=== PATIENT | male | born 1930 | race Caucasian/White ===

== ENCOUNTER → 2019-10-06 | Outpatient (CLI) | payer MEDICARE, OTHER ==
[~2019-10-06] MED LIST: CATHETER FLUSH 10 ML SYR IV PRN
--- NOTE | 2019-10-06 11:47 | Diagnostic Imaging Report ---
EXAMINATION: CT Abdomen Pelvis without contrast. TECHNIQUE: Multiple contiguous axial images were obtained through the abdomen and pelvis without the use of intravenous contrast. All CT scans use one or more of the following dose optimizing techniques: automated exposure control, MA and/or KvP adjustment based on a patient size and exam type, or iterative reconstruction. HISTORY: Prostate cancer. COMPARISON: None available. FINDINGS: Limited views of the lower thorax show moderate right pleural effusion and mild bibasilar atelectasis. Aortic valve is calcified concerning for aortic stenosis. Calcified granulomas are seen in the liver. There are no suspicious liver lesions. There is no biliary ductal dilation. Gallbladder is surgically absent. Pancreas is normal. Spleen is normal. Adrenal glands are normal. Simple cysts are seen in the kidneys. No suspicious renal lesions. There is no hydronephrosis. Urinary bladder is normal. Brachytherapy seeds are present in the prostate. Visualized bowel is normal in caliber without obstruction or inflammation. No free fluid or air. No abdominal or pelvic lymphadenopathy. Aorta is normal in caliber without aneurysm. There are no suspicious osseus lesions. IMPRESSION: 1. No metastatic disease is seen in the abdomen or pelvis. 2. Moderate right pleural effusion and bibasilar atelectasis. 3. Aortic valvular calcifications are seen concerning for aortic stenosis. Dictated by: Dictated on workstation # [id number]
--- NOTE | 2019-10-06 14:46 | Diagnostic Imaging Report ---
INDICATION: Prostate carcinoma. TECHNIQUE: The patient was administered 25.9 mCi of technetium 99m MDP intravenously and whole-body imaging was performed after a 3 hour delay. COMPARISON: No prior bone scans are available for comparison. FINDINGS: There is normal uptake of activity by the axial and appendicular skeleton. There is uptake by the kidneys with excretion into the urinary bladder. Mild uptake in the bilateral shoulders as well as the left knee is noted which appears to be degenerative. Minimal uptake in the cervical spine is also noted, likely degenerative. No focus of tracer accumulation is identified to suggest osseous metastatic disease. IMPRESSION: No scintigraphic evidence of osseous metastatic disease. Dictated by: Dictated on workstation # [id number]
== END ==
LOC: CARD 11:00
PROVIDERS: ATTEND Urology
DX: J90 Pleural effusion, not elsewhere classified (principal); J98.11 Atelectasis; I70.0 Atherosclerosis of aorta; Z85.46 Personal history of malignant neoplasm of prostate
CPT/HCPCS: 74176; 78306; A9503

== ENCOUNTER → 2020-03-22 | Outpatient (CLI) | payer MEDICARE, OTHER ==
--- NOTE | 2020-03-22 12:21 | Diagnostic Imaging Report ---
PROCEDURE: CT abdomen and pelvis without contrast. TECHNIQUE: Multiple contiguous axial images were obtained through the abdomen and pelvis without the use of intravenous contrast. Auto Exposure Controls were utilized during the CT exam to meet ALARA standards for radiation dose reduction. INDICATION: Increasing PSA and abdominal pain. Patient does have a history of prostate carcinoma. COMPARISON: Prior CT from 10/06/2019. FINDINGS: There is a small to moderate right and trace left pleural effusion. Airspace infiltrates are identified in the left lower lobe, consistent with pneumonia. No discrete liver mass is identified. The gallbladder is surgically absent. No biliary ductal dilatation is seen. The pancreas and spleen are unremarkable. No adrenal mass is identified. Large cysts involving the bilateral kidneys are again noted. There is no calculus or hydronephrosis. The aorta is calcified but nonaneurysmal. No central retroperitoneal or mesenteric lymphadenopathy is seen. The small and large bowel loops are of normal caliber. There is no obstruction. There is no free fluid in the abdomen or pelvis. The bladder is unremarkable. The prostate contains numerous radiation seeds. There is no pelvic lymphadenopathy identified. There are diverticula involving the sigmoid colon but no evidence of acute diverticulitis. Post operative changes in the lower lumbar spine are noted. No osteoblastic lesions are seen. IMPRESSION: 1. Bilateral pleural effusions, right greater. There is also airspace infiltrate in the left lower lobe, consistent with pneumonia. There is some minimal infiltrate or atelectasis in the right lower lobe as well. 2. No evidence of abdominal or pelvic lymphadenopathy or metastatic disease. 3. Uncomplicated diverticulosis. Dictated by: Dictated on workstation # [id number]
--- NOTE | 2020-03-22 15:12 | Diagnostic Imaging Report ---
INDICATION: Prostate carcinoma. TECHNIQUE: The patient was administered 26.2 mCi of technetium 99m MDP intravenously and whole-body imaging was performed after a 3 hour delay. COMPARISON: Correlation is made with a whole-body bone scan from 10/06/2019. FINDINGS: Uptake of activity by the axial and appendicular skeleton is noted. There is uptake by both kidneys with excretion into the urinary bladder. The patient has developed multiple abnormal foci of tracer accumulation involving bilateral ribs. There is also uptake involving the bony pelvis on the left side. 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 No other abnormalities are seen. 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 Dictated by: Dictated on workstation # [id number]
== END ==
LOC: CARD 11:00
PROVIDERS: ATTEND Urology
DX: C61 Malignant neoplasm of prostate (principal); J90 Pleural effusion, not elsewhere classified; K57.90 Diverticulosis of intestine, part unspecified, without perforation or abscess without bleeding
CPT/HCPCS: 74176; 78306; A9503